=== PATIENT | female | born 1985 | race Caucasian/White ===

== ENCOUNTER 2016-11-26 09:26 | Emergency (ER) | payer MEDICAID ==
[~2016-11-26] VITALS: Ht 154.9 cm; Wt 68.0 kg
[2016-11-26 09:30] VITALS: Ht 154.9 cm; Wt 68.0 kg
--- OUTSIDE RECORDS SUMMARY | 2016-11-26 09:32 | XMS REPORT | Continuity Of Care Document ---
Author Author [facility] Organization [facility] Address [address] [place] [address] Phone Care Team Providers Care Panel Maker Name Role Phone UNASSIGNED, PHYSICIAN Unavailable Unavailable Alexus YEH DO AT Results Results No results recorded. Allergies and Adverse Reactions Allergies and Adverse Reactions Patient Unit Number: [id number] Agent Type Reaction Severity Status NO KNOWN DRUG ALLERGIES Drug Allergy Unknown Unknown Active Problem List Problem List No problem list recorded. Plan of Care Plan Of Care Visit/Account #[id number] (November 25, 2016 1:49am - November 25, 2016 2:21am) Patient Instructions Take the Medrol Dosepak as prescribed. Take Norflex twice daily for 5 days. [facility] Apply ice 20 minutes on/40 minutes off over a wet cloth times x2-3 days. Follow up with your doctor as needed, return to the Emergency Department for any concerns. Hold the tizanadine. Vital Signs Vital Signs Visit/Account #[id number] (November 25, 2016 1:49am - November 25, 2016 2:21am) Sign First Result Last Result Code(s) Body Mass Index Body Mass Index (BMI): 29.0 kg/m2 On November 25, 2016 1:47am 60705-5 BMI (body mass index) Body Mass Index as a Calculated Value 29.3 kg/m2 On November 25, 2016 1:47am 06388-5 BMI (body mass index) Body Surface Area as a Calculated Value 1.7 m2 On November 25, 2016 1:47am 3140-1 BSA (body surface area) Height (Feet/Inches) 5 [ft_us] 1.00 [in_us] On November 25, 2016 1:47am 8302-2 Height Temperature in Fahrenheit Temperature (Fahrenheit): 98.0 [degF] On November 25, 2016 1:47am Temperature (Fahrenheit): 97.7 [degF] On November 25, 2016 2:21am 8310-5 Body Temperature Weight in Kilograms Weight (Kilograms): 70.4500 kg On November 25, 2016 1:47am 3141-9 Weight Measured Functional Status Functional and Cognitive Status No Functional Status Data Medications Inpatient/Ordered Medications - Medications administered during hospital visit Visit/Account #[id number] (November 25, 2016 1:49am - November 25, 2016 2:21am) Medication Route Sig/Schedule Precondition/Indication Comments/Instructions Codes SOLU-Medrol INJ(MethylPREDNISolone SOD SUCC) 125 MG/2 ML INJECTION Dose: 2 ML INTRAMUSC ONE TIME ORDER Methylprednisolone 125 MG Injection [Solu-Medrol] (RxNorm): 5458377 SOLU-Medrol INJ (MethylPREDNISolone SOD SUCC) NDC: 56588263573 NORFLEX INJ(ORPHENADRINE CITRATE) 60 MG/2 ML INJECTION Dose: 2 ML INTRAMUSC NOW 2 ML Orphenadrine Citrate 30 MG/ML Injection (RxNorm): 710781 NORFLEX INJ (ORPHENADRINE CITRATE) NDC: 15039525232 Discharge Medications - Medications that patient should continue to take. Review with physician Visit/Account #[id number] (November 25, 2016 1:49am - November 25, 2016 2:21am) Medication Route Sig/Schedule Precondition/Indication Comments/Instructions Codes Medrol Dose Pack(MethylPREDNISolone) 4 MG TAB.DS.PK Dose: 1 TAB ORAL DIRECTED Rx Instructions: PER PACKAGE INSTRUCTIONS {21 (Methylprednisolone 4 MG Oral Tablet) } Pack (RxNorm): 932243 Medrol Dose Pack (MethylPREDNISolone) NDC: 39736825167 Norflex(ORPHENADRINE CITRATE) 100 MG TAB Dose: 100 MG ORAL TWICE A DAY 12 HR Orphenadrine Citrate 100 MG Extended Release Oral Tablet (RxNorm): 287090 Norflex (ORPHENADRINE CITRATE) NDC: 85927119031 History Of Encounters Encounters Visit/Account #[id number] (November 25, 2016 1:49am - November 25, 2016 2:21am) Account Status Physican Of Record Reason For Visit Visit Diagnosis Start Date/Time Stop Date/Time YUDI YEH DO LEFT ANKLE INJURY Not Available Nov 25, 2016 1:49am Nov 25, 2016 2:21am History of Procedures Procedure List No procedures recorded. Discharge Instructions Discharge Instructions Visit/Account #[id number] (November 25, 2016 1:49am - November 25, 2016 2:21am) DISCHARGE INSTRUCTIONS Physician Documentation Social History Social History No Social History Data. Immunizations Immunizations Patient Unit Number: [id number] Immunizations No immunizations recorded.
--- OUTSIDE RECORDS SUMMARY | 2016-11-26 09:32 | XMS REPORT ---
Author Author [facility], [facility] - Organization Unknown Address Unknown Phone Unavailable Allergies, Adverse Reactions, Alerts * No Latex Allergy. * No IV Contrast Allergy. * No Known Drug Allergies. * No Known Food Allergies. * No Known Allergies. Problems * Infection Risk* Status:Resolved. * Injury Risk* Status:Resolved. * Knowledge Low Level* Status:Resolved. * Pain* Status:Resolved. * Tissue Integrity Impairment* Status:Resolved. Procedures No Procedures Documented. Medication It is the responsibility of the patient or patient loan representative to confirm the list of medications with either the patient's personal care provider or the patient's follow-up care provider to ensure the patient has an appropriate list of medications to take at home. Discharge medications* docusate sodium (Stool Softener) 100 mg Capsule, Ordered By: Peyton Freeman Directions: 1 capsule oral twice a day Additional Instructions: FOR STOOL SOFTENER * ibuprofen 800 mg Tablet, Ordered By: Peyton Freeman Directions: 1 tablet oral every eight hours Additional Instructions: PAIN - CHART PAIN SCALE * LANOLIN MODIFIED OINT 7GM (LANSINOH 7GM) 1 KENYON=1 EACH Topical OINT Q1H PRN FOR COMFORT, Clinician Dir:APPLY TO NIPPLES Directions: 1 each topical Q1H PRN _ FOR COMFORT Additional Instructions: APPLY TO NIPPLES * oxyCODONE-acetaminophen (Percocet) 5 mg-325 mg Tablet, Ordered By: Peyton Freeman Directions: 1-2 TAB oral every four hours PRN PAIN - CHART PAIN SCALE Stopped medications* tagament * Tylenol * PNV Results LAB--BLOOD BANK from 11/20/2012 7:24 AMABO and Rh O POS Antibody Screen (Indirect Babar) NEG LAB--HEMATOLOGY from 11/20/2012 7:24 AMAbsolute Basophils 0.01 THOUS (0.00-0.20 THOUS) Absolute Eosinophils 0.09 THOUS (0.00-0.50 THOUS) Absolute Lymphocytes 2.76 THOUS (0.80-3.30 THOUS) Absolute Monocytes 0.54 THOUS (0.30-1.00 THOUS) Absolute Neutrophils 3.94 THOUS (1.90-7.00 THOUS) HCT 35.0 % L (37.0-47.0 %) HGB 12.0 g/dl (12.0-16.0 g/dl) MCH 31.5 pg (27.0-32.0 pg) MCHC 34.3 g/dL (32.0-36.0 g/dL) MCV 91.9 fL (82.0-99.0 fL) MPV 11.9 fL (9.4-12.4 fL) Platelet Count 196 K/uL (150-400 K/uL) RBC 3.81 M/uL L (4.00-5.20 M/uL) RDW 12.4 % (11.5-14.5 %) WBC 7.4 K/uL (4.8-10.8 K/uL) Basophils 0 % (0-2 %) Eosinophils 1 % (0-4 %) Immature Granulocytes 0.1 % (0.0-1.0 %) Lymphocytes 38 % (20-46 %) Monocytes 7 % (4-11 %) Nucleated RBC Automated 0.0 /100 WBC (0 /100 WBC) Neutrophils 54 % (51-75 %) LAB--HEMATOLOGY from 11/21/2012 5:34 AMHCT 32.5 % L (37.0-47.0 %) HGB 11.0 g/dl L (12.0-16.0 g/dl)
--- OUTSIDE RECORDS SUMMARY | 2016-11-26 09:32 | XMS REPORT | Continuity of Care Document ---
Author Author [facility] Organization [facility] Address Unknown Phone Unavailable Allergies Active Description Code Type Severity Reaction Onset Reported/Identified Relationship to Patient Clinical Status Yes acetaminophen acetaminophen Drug Allergy Unknown NAUSEA, SWEATING 07/13/2012 Yes hydrocodone bit hydrocodone bit Drug Allergy Unknown NAUSEA ,SWEATING 07/13/2012 Yes No Known Allergies Drug Allergy 11/20/2012 Yes No Known Drug Allergies Drug Allergy 11/20/2012 Yes No Known Food Allergies Food Allergy 11/20/2012 Yes No Known Allergies Drug Allergy N/A N/A 12/23/2012 Yes No Known Drug Allergies Drug Allergy N/A N/A 12/23/2012 Yes No Known Food Allergies Food Allergy N/A N/A 12/23/2012 Medications Problems Date Dx Coded Attending Type Code Diagnosis Diagnosed By 08/08/2012 Rosa Elena Solis MD Final 648.93 OTH CCE COMP PREG-AP 08/08/2012 Rosa Elena Solis MD Final 649.03 TOBAC USE COMP PREG-AP 08/08/2012 Rosa Elena Solis MD Final 654.23 PREVIOUS CD NOS-AP 08/08/2012 Rosa Elena Solis MD Final 789.00 ABDOMINAL PAIN-SITE NOS 09/13/2012 Rosa Elena Solis MD Final V28.89 SCREENING NEC 11/20/2012 Bonnie Dunbar MD Final 654.21 PREVIOUS CD NOS-DEL 11/20/2012 Bonnie Dunbar MD Final V27.0 DELIVERY-SINGLE LIVEBORN 12/23/2012 Balta Infante MD Final 300.00 ANXIETY STATE NOS 12/23/2012 Balta Infante MD Final 786.50 CHEST PAIN NOS Procedures Code Description Performed By Performed On 74.1 LOW CERVICAL CD Bonnie Dunbar MD 11/20/2012 86.59 CLOSURE SKIN SUBCUTANEOUS NEC Freddie Solis MD 01/08/2015 Results Test Result Range URINALYSIS, ROUTINE - 07/13/12 13:30 UA LEUKOCYTE ESTERASE DIPSTICK NEGATIVE NEGATIVE UA NITRITE DIPSTICK NEGATIVE NEGATIVE UA PROTEIN DIPSTICK NEGATIVE NEGATIVE UA GLUCOSE DIPSTICK NEGATIVE NEGATIVE UA KETONE DIPSTICK NEGATIVE NEGATIVE UA UROBILINOGEN DIPSTICK NORMAL NORMAL UA BILIRUBIN DIPSTICK NEGATIVE NEGATIVE UA BLOOD DIPSTICK NEGATIVE NEGATIVE UA VOLUME FOR EXAM 12.0 mL (12mL STD) UA SPECIFIC GRAVITY 1.005 1.015-1.025 UR PH 7.0 5.0-7.0 URINALYSIS, ROUTINE - 02/25/14 08:30 UA LEUKOCYTE ESTERASE DIPSTICK NEGATIVE NEGATIVE UA NITRITE DIPSTICK NEGATIVE NEGATIVE UA PROTEIN DIPSTICK NEGATIVE NEGATIVE UA GLUCOSE DIPSTICK NEGATIVE NEGATIVE UA KETONE DIPSTICK NEGATIVE NEGATIVE UA UROBILINOGEN DIPSTICK NORMAL NORMAL UA BILIRUBIN DIPSTICK NEGATIVE NEGATIVE UA BLOOD DIPSTICK NEGATIVE NEGATIVE UA SPECIFIC GRAVITY 1.010 1.015-1.025 UR PH 5.0 5.0-7.0 UR TEST - 02/25/14 08:30 UR TEST NEGATIVE NEGATIVE Encounters ACCT No. Visit Date/Time Discharge Status Pt. Type Provider Facility Loc./Unit Complaint [id number] 12/23/2012 11:32:00 2012 13:29:00 DIS Emergency Naresh BAKER [facility] on [address] [id number] 11/20/2012 06:26:00 2012 15:45:00 DIS Inpatient Manjinder BAKER [facility] on [address] [id number] 09/13/2012 15:03:00 2012 23:59:59 CLS Outpatient Rosa Elena Solis MD [facility] [id number] 08/08/2012 13:19:00 2012 16:35:00 DIS [facility]
--- OUTSIDE RECORDS SUMMARY | 2016-11-26 09:32 | XMS REPORT ---
Author Author Kathia Garcia Organization [facility] Address [address] [place] [address] Care Team Providers Care House Rn Name Role Phone Kathia Garcia Unavailable [phone] PROBLEMS Type Condition ICD9-CM Code XXJ57-PO Code Onset Dates Condition Status SNOMED Code Problem Major depressive disorder, recurrent severe without psychotic features F33.2 Active 94391244 Assessment Major depressive disorder, recurrent severe without psychotic features F33.2 Oct, Active 50628452 Assessment Tobacco use Z72.0 Oct, Active 718878917 ALLERGIES Substance Reaction Event Type Date Status N.K.D.A. Unknown Non Drug Allergy Oct, Unknown SOCIAL HISTORY No smoking Hx information available PLAN OF CARE VITAL SIGNS Height 61.5 in 2016-10-11 Weight 159lb 4oz lbs 2016-10-11 BMI 29.60 kg/m2 2016-10-11 Heart Rate 87 /min 2016-10-11 Temperature 97.5 degrees Fahrenheit 2016-10-11 Blood pressure systolic 117 mm Hg 2016-10-11 Blood pressure diastolic 87 mm Hg 2016-10-11 MEDICATIONS Medication Instructions Dosage Frequency Start Date End Date Duration Status Wellbutrin SR 150 MG Orally as directed 1 tab once daily x3 days then twice daily thereafter Oct, 30 day(s) Active RESULTS No Results PROCEDURES Procedure Date Ordered Related Diagnosis Body Site Office Visit, New Pt., Level 3 October 11, 2016 IMMUNIZATIONS No Known Immunizations
--- OUTSIDE RECORDS SUMMARY | 2016-11-26 09:32 | XMS REPORT | Continuity of Care Document ---
Author Author [facility] Organization [facility]] Address Unknown Phone Unavailable Allergies Active Description [...] Status Pt. Type Provider Facility Loc./Unit Complaint [id number] 12/23/2012 11:32:00 2012 13:29:00 DIS Emergency Naresh BAKER [facility] on [address] [id number] 11/20/2012 06:26:00 2012 15:45:00 DIS Inpatient Manjinder BAKER [facility] on [address] [id number] 09/13/2012 15:03:00 2012 23:59:59 CLS Outpatient Rsoa Elena Solis MD [facility] on [facility] [id number] 08/08/2012 13:19:00 2012 16:35:00 DIS Outpatient [facility]
--- OUTSIDE RECORDS SUMMARY | 2016-11-26 09:32 | XMS REPORT ---
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 Unknown Non Drug Allergy Nov, Unknown SOCIAL HISTORY No smoking Hx information available PLAN OF CARE VITAL SIGNS Height 61.5 in 2016-11-23 Weight 153 lb 8 oz lbs 2016-11-23 BMI 28.53 kg/m2 2016-11-23 Heart Rate 121 /min 2016-11-23 Temperature 97.4 degrees Fahrenheit 2016-11-23 Blood pressure systolic 125 mm Hg 2016-11-23 Blood pressure diastolic 85 mm Hg 2016-11-23 MEDICATIONS Medication Instructions Dosage Frequency Start Date End Date Duration Status Percocet 5-325 MG Orally every 6 hrs 1 tablet as needed 6h Nov, Active Zanaflex 4 MG Orally two times a day as needed 1 tablet as needed NovNov, 10 days Active Naproxen 500 MG Orally every 12 hrs 1 tablet as needed with food or milk 12h Nov, December, 20 days Active Wellbutrin SR 150 MG Orally as directed 1 tab once daily x3 days then twice daily thereafter Oct, 30 day(s) Active RESULTS No Results PROCEDURES Procedure Date Ordered Related Diagnosis Body Site Office Visit, Est Pt., Level 3 November 23, 2016 IMMUNIZATIONS No Known Immunizations
--- OUTSIDE RECORDS SUMMARY | 2016-11-26 09:32 | XMS REPORT | Continuity Of Care Document ---
Author Author [facility] Organization [facility] Address [address] [place] [address] Phone Care Team Providers Care Accountant Tax Name Role Phone NON STAFF COURTESY, PROVIDER PP Unavailable BRAVO BAKER, S Unavailable Alexus YEH DO AT Results Results No results recorded. Allergies and Adverse Reactions Allergies and Adverse Reactions Patient Unit Number: [id number] Agent Type Reaction Severity Status NO KNOWN DRUG ALLERGIES Drug Allergy Unknown Unknown Active Problem List Problem List Visit/Account #[id number] (April 25, 2016 9:32am - April 25, 2016 10: 54am) Acute Problems: Code/Condition Comments Documented Start Date Documented Resolved Date Code (s) Dental abscess ICD10: K04.7 Dental abscess ICD9: 522.5 Dental abscess SNOMED: 315819185 Dental abscess Plan of Care Plan Of Care Visit/Account #[id number] (April 25, 2016 9:32am - April 25, 2016 10: 54am) Patient Instructions Take the clindamycin every 6 hours for 7 days. Take the ibuprofen every 8 hours for 5 days, the [place] one to 2 tablets every 6 hours as needed for pain. Return to the emergency department for any concerns. Follow up with your dentist tomorrow. Vital Signs Vital Signs Visit/Account #[id number] (April 25, 2016 9:32am - April 25, 2016 10: 54am) Sign First Result Last Result Code(s) Temperature in Fahrenheit Temperature (Fahrenheit): 97.6 [degF] On April 25, 2016 9:29am Temperature (Fahrenheit): 98.2 [degF] On April 25, 2016 10:47am 8310-5 Body Temperature Weight in Kilograms Weight (Kilograms): 73.8 kg On April 25, 2016 9:29am 3141-9 Weight Measured 67339-1 Body weight measured in kilograms Functional Status Functional and Cognitive Status No Functional Status Data Medications Inpatient/Ordered Medications - Medications administered during hospital visit Visit/Account #[id number] (April 25, 2016 9:32am - April 25, 2016 10: 54am) Medication Route Sig/Schedule Precondition/Indication Comments/Instructions Codes IV Medication Carriers: CLEOCIN 600 MG/50 ML(CLINDAMYCIN PHOSPHATE/D5W) 600 MG/50 ML INJECTION Dose: 50 ML INTRAVEN OFELIA (Rate: 100 MLS/HR Duration: 30 MIN) Label Comments: Do NOT refrigerate. To be given by surgical staff within 1 hr of incision. Carriers: 50 ML Clindamycin 12 MG/ML Injection (RxNorm): 201168 CLEOCIN 600 MG/50 ML (CLINDAMYCIN PHOSPHATE/D5W) NDC: 95882509876 SUBLIMAZE INJ(FentaNYL CITRATE) 100 MCG/2 ML INJECTION Dose: 2 ML INTRAVEN ONE TIME ORDER Label Comments: MAY INCREASE FALL RISK 2 ML Fentanyl 0.05 MG/ML Injection (RxNorm): 8856105 SUBLIMAZE INJ (FentaNYL CITRATE) NDC: 63363354236 Discharge Medications - Medications that patient should continue to take. Review with physician Visit/Account #[id number] (April 25, 2016 9:32am - April 25, 2016 10: 54am) Medication Route Sig/Schedule Precondition/Indication Comments/Instructions Codes Cleocin(CLINDAMYCIN HCL) 300 MG CAPSULE Dose: 300 MG ORAL EVERY 6 HOURS Clindamycin 300 MG Oral Capsule [Cleocin] (RxNorm): 186035 Cleocin (CLINDAMYCIN HCL) NDC: 50994846103 Ibuprofen(IBUPROFEN) 800 MG TABLET Dose: 800 MG ORAL EVERY 8 HOURS Ibuprofen 800 MG Oral Tablet (RxNorm): 219413 Ibuprofen (IBUPROFEN) NDC: 57077809012 NORCO 5-325 TABLET(HYDROcodone BIT/ACETAMINOPHEN) 1 EACH TABLET Dose: 1-2 TAB ORAL EVERY 6 HOURS PAIN Acetaminophen 325 MG / Hydrocodone Bitartrate 5 MG Oral Tablet (RxNorm): 188822 NORCO 5-325 TABLET (HYDROcodone BIT/ACETAMINOPHEN) [facility]: [id number] History Of Encounters Encounters Visit/Account #[id number] (April 25, 2016 9:32am - April 25, 2016 10: 54am) Account Status Physican Of Record Reason For Visit Visit Diagnosis Start Date/Time Stop Date/Time YUDI YEH, DO LEFT SIDE OF FACE SWOLLEN SINCE YESTERDAY K08.8: OTHER SPECIFIED DISORDERS OF TEETH AND SUPPORTING STRUCTURES ICD10 Apr 25, 2016 9:32am Apr 25, 2016 10:54am History of Procedures Procedure List No procedures recorded. Discharge Instructions Discharge Instructions Visit/Account #[id number] (April 25, 2016 9:32am - April 25, 2016 10: 54am) DISCHARGE INSTRUCTIONS Physician Documentation Social History Social History No Social History Data. Immunizations Immunizations Patient Unit Number: [id number] Immunizations No immunizations recorded.
--- OUTSIDE RECORDS SUMMARY | 2016-11-26 09:32 | XMS REPORT | Continuity Of Care Document ---
Author Author [facility] Organization [facility] Address [address] [place] [address] Phone Care Team Providers Care Admissions Clerk Name Role Phone UNASSIGNED, PHYSICIAN Unavailable Unavailable TRACY BAKER, VY AT Results Results No results recorded. Allergies and Adverse Reactions Allergies and Adverse Reactions Patient Unit Number: [id number] Agent Type Reaction Severity Status NO KNOWN DRUG ALLERGIES Drug Allergy Unknown Unknown Active Problem List Problem List Visit/Account #[id number] (June 28, 2016 12:10pm - June 28, 2016 12: 41pm) Acute Problems: Code/Condition Comments Documented Start Date Documented Resolved Date Code (s) Strain of lumbar region ICD10: S39.012A Strain of lumbar region ICD9: 847.2 Strain of lumbar region SNOMED: 967271394 Strain of lumbar region Plan of Care Plan Of Care Visit/Account #[id number] (June 28, 2016 12:10pm - June 28, 2016 12: 41pm) Patient Instructions Return if worse or any concern. Do not drive or take additional acetaminophen while taking Wallace. Do not take additional ibuprofen while taking Toradol. Follow-up with a primary care physician within the next week for further evaluation and care and possible referral to physical therapy. Vital Signs Vital Signs Visit/Account #[id number] (June 28, 2016 12:10pm - June 28, 2016 12: 41pm) Sign First Result Last Result Code(s) Temperature in Fahrenheit Temperature (Fahrenheit): 98.0 [degF] On June 28, 2016 12:09pm Temperature (Fahrenheit): 99.0 [degF] On June 28, 2016 12:40pm 8310-5 Body Temperature Weight in Kilograms Weight (Kilograms): 75.45 kg On June 28, 2016 12:09pm 3141-9 Weight Measured 44644-7 Body weight measured in kilograms Functional Status Functional and Cognitive Status No Functional Status Data Medications Inpatient/Ordered Medications - Medications administered during hospital visit Visit/Account #[id number] (June 28, 2016 12:10pm - June 28, 2016 12: 41pm) Medication Route Sig/Schedule Precondition/Indication Comments/Instructions Codes LIDODERM 5% PATCH(LIDOCAINE) 1 PATCH PATCH Dose: 1 PATCH TOPICALLY NOW Label Comments: PATCH MAY REMAIN IN PLACE FOR UP TO 12 HOURS IN EACH 24 HOUR PERIOD Special Dose Instructions: REMOVE AFTER 12 HOURS Lidocaine 0.05 MG/MG Medicated Patch [Lidoderm] (RxNorm): 9212519 LIDODERM 5% PATCH (LIDOCAINE) NDC: 55455339030 NORCO 5-325(HYDROcodone BIT/ACETAMINOPHEN) 1 TAB TAB Dose: 2 TAB ORAL NOW Label Comments: <<may be substituted for 5/500>> REC MAX DAILY DOSE ACETAMINOPHEN: 4000 MG/24 HR MAY INCREASE FALL RISK Acetaminophen 325 MG / Hydrocodone Bitartrate 5 MG Oral Tablet (RxNorm): 156321 NORCO 5-325 (HYDROcodone BIT/ACETAMINOPHEN) NDC: 03909110932 ZOFRAN ODT(ONDANSETRON HCL) 4 MG TAB Dose: 4 MG ORAL NOW Label Comments: MAY INCREASE FALL RISK Ondansetron 4 MG Disintegrating Oral Tablet (RxNorm): 569989 ZOFRAN ODT (ONDANSETRON HCL) NDC: 70308907900 Discharge Medications - Medications that patient should continue to take. Review with physician Visit/Account #[id number] (June 28, 2016 12:10pm - June 28, 2016 12: 41pm) Medication Route Sig/Schedule Precondition/Indication Comments/Instructions Codes NORCO 5-325 TABLET(HYDROcodone BIT/ACETAMINOPHEN) 1 EACH TABLET Dose: 1-2 TAB ORAL EVERY 6 HOURS BREAKTHROUGH PAIN Acetaminophen 325 MG / Hydrocodone Bitartrate 5 MG Oral Tablet (RxNorm): 111364 NORCO 5-325 TABLET (HYDROcodone BIT/ACETAMINOPHEN) NDC: 54397433364 Toradol(KETOROLAC TROMETHAMINE) 10 MG TAB Dose: 1 TAB ORAL EVERY 8 HOURS Ketorolac Tromethamine 10 MG Oral Tablet (RxNorm): 970887 Toradol (KETOROLAC TROMETHAMINE) NDC: 98663104830 History Of Encounters Encounters Visit/Account #[id number] (June 28, 2016 12:10pm - June 28, 2016 12: 41pm) Account Status Physican Of Record Reason For Visit Visit Diagnosis Start Date/Time Stop Date/Time ER VY MOLINA MD BACK PAIN Not Available Jun 28, 2016 12:10pm Jun 28, 2016 12:41pm History of Procedures Procedure List No procedures recorded. Discharge Instructions Discharge Instructions Visit/Account #[id number] (June 28, 2016 12:10pm - June 28, 2016 12: 41pm) DISCHARGE INSTRUCTIONS Physician Documentation Social History Social History No Social History Data. Immunizations Immunizations Patient Unit Number: [id number] Immunizations No immunizations recorded.
--- NOTE | 2016-11-26 10:04 | NUR ---
RADIOLOGY PT TO RADIOLOGY PER CART
[2016-11-26] MEDS ORDERED: METH4TAB3 PO (10:06)
[2016-11-26] MEDS ORDERED: ORPH100T2 PO (10:06)
[2016-11-26] MEDS ORDERED: NAPR500T3 PO (10:06)
[2016-11-26] MEDS ORDERED: BUPR150T3 PO (10:06)
--- OUTSIDE RECORDS SUMMARY | 2016-11-26 10:09 | XMS REPORT ---
Author Author [facility], [facility] - Organization Unknown Address Unknown Phone Unavailable [...] the responsibility of the patient or patient pharmacy services representative to confirm the list of medications [...]
--- OUTSIDE RECORDS SUMMARY | 2016-11-26 10:09 | XMS REPORT | Continuity of Care Document ---
Author Author [facility] Organization [facility] Address Unknown Phone Unavailable Allergies Active Description [...] Status Pt. Type Provider Facility Loc./Unit Complaint [id number] 12/23/2012 11:32:00 2012 13:29:00 DIS Emergency Naresh BAKER [facility] on [address] [id number] 11/20/2012 06:26:00 2012 15:45:00 DIS Inpatient Manjinder BAKER [facility] on [address] [id number] 09/13/2012 15:03:00 2012 23:59:59 CLS Outpatient Rosa Elena Solis MD [facility] on [facility] [id number] 08/08/2012 13:19:00 2012 16:35:00 DIS Outpatient Rosa Elena [facility]
--- OUTSIDE RECORDS SUMMARY | 2016-11-26 10:10 | XMS REPORT | Continuity of Care Document ---
Author Author [facility] Organization [facility] Address Unknown Phone Unavailable Allergies [...] Status Pt. Type Provider Facility Loc./Unit Complaint [id number] 12/23/2012 11:32:00 2012 13:29:00 DIS Emergency Naresh BAKER [facility] on [address] [id number] 11/20/2012 06:26:00 2012 15:45:00 DIS Inpatient Manjinder BAKER [facility] on [address] [id number] 09/13/2012 15:03:00 2012 23:59:59 CLS Outpatient Rosa Elena Solis MD [facility] on [facility] [id number] 08/08/2012 13:19:00 2012 16:35:00 DIS Outpatient [facility]
--- NOTE | 2016-11-26 10:12 | NUR ---
RADIOLOGY PT FROM RADIOLOGY PER CART
--- NOTE | 2016-11-26 10:13 | ERPDOC ---
Departure Disposition Decision Date: Nov 26, 2016 Disposition Decision Time: 10:25 Disposition: 01 DISCHARGED HOME, SELF-CARE Impression Impression Impression: Primary Impression: Sciatica Laterality: left Qualified Codes: M54.32 - Sciatica, left side Severity: Moderate Condition: Improved Seen By: Physician only Referrals: [facility] 2 Days Patient Instructions: Sciatica (ED) Problems/Meds/Labs Reviewed?: Yes Medications reviewed and manag: Yes Follow up care ordered?: Yes Mental Status: Alert, Oriented Scripts Oxycodone HCl/Acetaminophen (Percocet 5-325 mg Tablet) 5-325 Tablet 1 TAB PO Q4HR Y for PAIN for 2 Days, #12 TAB 0 Refills Prov: LOW BAXTER DO 11/26/16 HPI - General Medical General Chief Complaint: Lower Extremity Pain Stated Complaint: SEREVE LEFT LEG/HIP PAIN Time Seen by Provider: 09:28 Source: patient Exam Limitations: no limitations HPI - General Medical Initial Comments 31-year-old female presents to emergency department with a chief complaint of sciatica. Patient has a long-standing history of chronic back pain. Patient has been experiencing her current sciatica exacerbation for approximately the past 3 weeks. Patient describes the pain as a severe pain that comes from the SI joint and goes down to her toes. Pain is sharp and burning in nature. Patient has been seen by a chiropractor for multiple treatments as well as and multiple ERs around the area for this. Patient currently has a prescription for Naprosyn and a muscle relaxant. She was prescribed a Medrol Dosepak one day ago. She denies any other complaints or associated symptoms. She was at home when her symptoms began. Symptoms have been persistent in nature since onset. She notes improvement with analgesic pain medication. This is a typical exacerbation of the patient's chronic back pain. She denies any numbness, tingling, focal weakness, fever, saddle anesthesia, loss of bowel or bladder control, anticoagulation, abdominal pain, be drug abuse or other warning signs of back pain. Occurred At: home Onset: Gradual Allergies: Coded Allergies: hydrocodone (Verified Allergy, Unknown, 11/26/16) Past History Past Medical History Musculoskeletal: back pain Surgical History Reproductive/: tubal ligation Family History Family History: Negative Social History Smoking Status: Current every day smoker Substance Use Type: marijuana Alcohol Intake: occasionally Review of Systems Constitutional Constitutional: DENIES: chills, fever Eyes General: DENIES: erythema, exudate Lids/Accessories: DENIES: erythema, swelling ENMT Ears: DENIES: drainage, pain Hearing: DENIES: hearing loss Balance: DENIES: ataxia, falling to one side Sinuses: DENIES: congestion, pain Nose: DENIES: foreign body, nosebleeds Mouth/Throat: DENIES: painful swallowing, sore throat Teeth: DENIES: pain Jaw: DENIES: pain Cardiovascular Cardiac: DENIES: chest pain, dyspnea on exertion Rhythm/Rate: DENIES: irregular beat, palpitations Vascular: DENIES: pedal edema, unilateral swelling Pulmonary Respiratory: DENIES: cough, dyspnea, pleuritic chest pain, sputum GI Upper Abdomen: DENIES: nausea, pain, vomiting Lower Abdomen: DENIES: diarrhea, pain General: DENIES: dysuria, frequency Musculoskeletal General: tenderness, DENIES: joint pain Integumentary Skin: DENIES: itching, rash Neurological General: DENIES: headache, numbness, weakness Psychiatric Psychiatric: DENIES: emotional instability, suicidal ideation/attempt Endocrine Endocrine: DENIES: polydipsia, polyphagia Hematologic/Lymphatic Hematologic/Lymphatic: DENIES: frequent nosebleeds, lymphadenopathy Allergic/Immunological Allergic/Immunoligical: DENIES: allergic reactions, hives Physical Exam General General Nourishment: well nourished, well developed, appears stated age, no acute distress, adult General Body Habitus: well groomed Vitals and Pain First Documented Vital Signs Date Time Temp Pulse Resp B/P Pulse Ox O2 Delivery O2 Flow Rate FiO2 11/26/16 09:30 97.8 113 20 119/63 97 Room Air Weight: Kilograms: 68.000 Height (feet): 5 Height (inches): 1.00 Triage Pain Scale: RN VS reviewed by Provider: Yes Normal Exams: Head: Normocephalic w/o trauma Eyes: Pupils are PERRLA w/ EOMI, No scleral icterus, irritation, or foreign bodies noted ENMT: No facial trauma, nasal exudates, pharyngeal erythema, or exudates are noted Dental: No fractured, loose, or missing teeth noted Neck: Full range of motion, without adenopathy, JVD, bruits or thyromegaly Chest/Resp: Clear all benítez, with good airflow, and symmetry bilaterally CV: Regular rate and rhythm, without murmur or gallop, Pulses 2+ all extremities, capillary refill, <2 seconds all ext., no pedal edema noted Abdomen: Bowel sounds positive, soft, non-tender, non-distended, no hepatosplenomegaly, masses or bruits noted Lymphatic: No lymphadenopathy, or lymphedema noted Musculoskeletal: No tenderness, or deformity noted, good range of motion, all extremities Integumentary: No rashes, hives, or bruising noted, hair and nails, without abnormality Neurologic: Patient is alert, and oriented, cranial nerves, motor/sensory/ cerebellar, exams w/o gross deficits, to observation Psychiatric: Patient exhibits, appropriate attention, emotion and affect Musculoskeletal (brief) Comments Back - No midline tenderness or deformity of the cervical/thoracic/lumbar spine. + SI Joint Tenderness on the L . + L SLR. Neurologic (brief) Comments Alert and oriented x 4. CN 2-12 intact. Sensation intact. Normal speech. Normal motor. Normal coordination. Gait is slightly antalgic. Reflexes 2/4 in all extremities. Absent Babinski bilaterally. Normal strength. No focal neurologic deficit. Differential Diagnoses Considering: Other (Chronic back pain / sciatica / DDD / Lumbar strain) Progress Results/Orders Orders Procedure Category Date Status Time Lumbar Spine 2-3 Views RAD 11/26/16 Taken 09:55 Hydromorphone PHA 11/26/16 Complete (Dilaudid) 10:15 Medications Current ED Medications Hydromorphone HCl (Dilaudid) 1 mg O ONCE IM Last administered on 11/26/16t 10: 13; Start 11/26/16 at 10:15; Stop 11/26/16 at 10:16; Status DC Progress Progress Imaging is discussed in detail with the patient and questions are answered. Patient is given Dilaudid 1 mg IM 1 with improvement of symptoms. Patient is discharged home in improved condition. She is to follow up as instructed. Patient is to return to the emergency Department if her condition worsens or changes in any manner. Patient is in agreement with the current plan of management. Patient is instructed to continue her Medrol Dosepak as previously instructed. She is to continue her previously prescribed muscle relaxers as instructed. Patient is counseled regarding the importance of follow-up with her primary care physician. She is to return to the emergency Department if her condition worsens or changes in any manner. She is discharged home in improved condition. Xray Xray : Xray: L-Spine Interpretation: Normal, Interpreted by LOW Mancilla DO Nov 26, 2016 10:12
--- NOTE | 2016-11-26 10:14 | NUR ---
MEDICATION DILAUDID 1MG IM ADMINISTERED
[2016-11-26] MEDS ORDERED: HYDROMORPHONE 2mg/ml INJECTION IM ONE (10:15)
[2016-11-26] MEDS ORDERED: OXYC1TAB8 PO (10:50)
[2016-11-26 11:00] VITALS: BP 119/61; PULSE 96; RESP 20; TEMP 97.8; O2SAT 98
--- NOTE | 2016-11-26 11:00 | NUR ---
DISMISSAL DISMISSAL INSTRUCTIONS WITH RX FOR PERCOCET. NO FURTHER QUESTIONS AT THIS TIME. PT ASSISTED TO CAR PER WC
--- NOTE | 2016-11-27 09:33 | DI ---
Indication: ITS.REASON: sciatica PROCEDURE: LUMBAR SPINE 3 VIEWS: Encounter: Initial Comparison: None Findings: Alignment of the lumbar spine is normal. Vertebral body heights are maintained. No acute fracture or subluxation. Mild disk space narrowing at L4-L5. Impression: Mild degenerative disk disease at L4-L5. There is a preliminary report by [facility]. .
== END 2016-11-26 11:00 | disposition home or self-care (01) ==
LOC: ED 09:26
DX: M54.32 Sciatica, left side (principal)
CPT/HCPCS: 72100; 96372; 99283; J1170